=== PATIENT | female | born 1990 | race Caucasian/White ===

== ENCOUNTER 2018-03-04 19:23 | Emergency (ER) | payer OTHER ==
[2018-03-04] MEDS: ACETAMINOPHEN 325 MG TAB PO (20:45)
== END 2018-03-04 21:09 | disposition home or self-care (01) ==
LOC: M ED 19:23
DX: S93.401A Sprain of unspecified ligament of right ankle, initial encounter (principal); S93.601A Unspecified sprain of right foot, initial encounter; W17.89XA Other fall from one level to another, initial encounter; Y92.018 Other place in single-family (private) house as the place of occurrence of the external cause
CPT/HCPCS: 73610